=== PATIENT | female | born 1980 | race African-American/Black ===

== ENCOUNTER 2025-05-31 20:25 | Emergency (ER) | payer SELFPAY ==
[~2025-05-31] VITALS: Ht 175.3 cm; Wt 87.0 kg
[2025-05-31 20:31] VITALS: O2SAT 98
[2025-05-31 20:33] VITALS: BP 156/90; PULSE 72; RESP 18; TEMP 37; O2SAT 99
[2025-05-31] MEDS ORDERED: NAPR-1495 MT (23:33)
[2025-05-31] MEDS: NEOMYCIN/BACITRACIN/POLYMYXIN OINT 14GM TOP STA (23:54)
== END 2025-06-01 00:17 | disposition home or self-care (01) ==
LOC: ER 20:25
DX: T24.019A Burn of unspecified degree of unspecified thigh, initial encounter (principal); Z88.0 Allergy status to penicillin; X58.XXXA Exposure to other specified factors, initial encounter; Y93.89 Activity, other specified; Y92.89 Other specified places as the place of occurrence of the external cause; Y99.8 Other external cause status
CPT/HCPCS: 16000; 99282